=== PATIENT | male | born 1950 | race Caucasian/White ===

== ENCOUNTER 2016-07-28 | Outpatient (CLI) | payer MEDICARE, OTHER | END 2016-07-28 15:09 | disposition critical access hospital (66) | DX: I46.9 Cardiac arrest, cause unspecified (principal) | CPT/HCPCS: A0425; A0433 ==

== ENCOUNTER 2016-07-28 15:31 | Emergency (ER) | payer OTHER, MEDICARE ==
[~2016-07-28 15:31] MED LIST: EPINEPHrine ABBOJECT 1 MG/10 ML SYRINGE ONE; SODIUM BICARBONATE ABBOJECT 50 MEQ/50 ML SYRINGE ONE
== END 2016-07-28 17:48 | disposition expired ==
DX: I46.9 Cardiac arrest, cause unspecified (principal); I10 Essential (primary) hypertension; Z86.711 Personal history of pulmonary embolism; Z79.82 Long term (current) use of aspirin